=== PATIENT | male | born 2000 | race Caucasian/White ===

== ENCOUNTER 2018-04-09 23:56 | Emergency (ER) | payer BC ==
[~2018-04-09] VITALS: Ht 180.3 cm; Wt 132.3 kg
[2018-04-10 00:25] VITALS: TEMP 98.5
[2018-04-10 03:00] VITALS: BP 126/91; PULSE 92
== END 2018-04-10 03:05 | disposition home or self-care (01) ==
LOC: COL.ER 23:56
DX: S39.94XA Unspecified injury of external genitals, initial encounter (principal); W22.8XXA Striking against or struck by other objects, initial encounter